=== PATIENT | female | born 1990 ===

== ENCOUNTER 2024-10-09 08:10 | Outpatient (CLI) | payer OTHER | END 2024-10-09 08:11 | disposition home or self-care (01) | LOC: PRENATAL 08:10 | PROVIDERS: ATTEND Obstetrics & Gynecology Maternal & Fetal Medicine | DX: O36.80X0 Pregnancy with inconclusive fetal viability, not applicable or unspecified (principal); Z36.82 Encounter for antenatal screening for nuchal translucency; O09.529 Supervision of elderly multigravida, unspecified trimester; Z14.8 Genetic carrier of other disease; Z3A.12 12 weeks gestation of pregnancy ==

== ENCOUNTER 2024-12-04 08:01 | Outpatient (CLI) | payer OTHER | END 2024-12-04 08:04 | disposition home or self-care (01) | LOC: PRENATAL 08:01 | PROVIDERS: ATTEND Obstetrics & Gynecology Maternal & Fetal Medicine | DX: O44.00 Complete placenta previa NOS or without hemorrhage, unspecified trimester (principal); O09.529 Supervision of elderly multigravida, unspecified trimester; Z3A.20 20 weeks gestation of pregnancy ==

== ENCOUNTER 2025-02-25 08:10 | Outpatient (CLI) | payer OTHER | END 2025-02-25 08:12 | disposition home or self-care (01) | LOC: PRENATAL 08:10 | PROVIDERS: ATTEND Obstetrics & Gynecology Maternal & Fetal Medicine | DX: O26.849 Uterine size-date discrepancy, unspecified trimester (principal); O36.8199 Decreased fetal movements, unspecified trimester, other fetus; O09.529 Supervision of elderly multigravida, unspecified trimester; Z3A.32 32 weeks gestation of pregnancy ==

== ENCOUNTER 2025-04-08 14:00 | Inpatient (IN) | payer OTHER ==
[~2025-04-08] VITALS: Ht 170.2 cm; Wt 69.9 kg
[2025-04-10] VITALS (7 sets, daily range): BP systolic 95–121; BP diastolic 52–80
[2025-04-10] MEDS ORDERED: AMPICILLIN SODIUM 2,000 MG VIAL IV ONE (02:45)
[2025-04-10] MEDS ORDERED: RINGERS SOLUTION,LACTATED 1,000 ML IV SCH (02:45)
[2025-04-10] MEDS ORDERED: ZOLOFT25 MG PO (02:53)
[2025-04-10] MEDS ORDERED: FUSION CAPSULE1 EACH PO (02:53)
[2025-04-10] MEDS ORDERED: PRENATAL TABLE1 EAC1 PO (02:53)
[2025-04-10 03:12] LABS: URINE APPEARANCE Turbid; URINE BILIRRUBIN Negative (NEGATIVE); URINE COLOR Yellow; URINE GLUCOSE Negative (NEGATIVE); URINE KETONE Negative (NEGATIVE); URINE LEUKOCYTE Small; URINE NITRATE Negative; URINE UROBILINOGEN 0.2 E.U./dl
[2025-04-10 03:17] LABS: BASO % 0.1 % (0.1-1.2); EOS # 0.03 (0.04-0.54); EOS % 0.4 % (0.7-7.0); LYMPH # 1.89 (1.18-3.74); LYMPH % 22.7 % (19.3-53.1); MEAN PLATELET VOLUME 11.00 fl (9.4-12.4); MONO # 0.62 (0.24-0.82); MONO % 7.5 % (4.7-12.5); NEUT # 5.72 (1.56-6.13); NEUT % 68.8 % (34.0-71.1); RED CELL DISTRIBUTION WIDTH 17.0 % (11.6-14.4)
[2025-04-10 03:24] LABS: URINE BLOOD Moderate
[2025-04-10 03:26] LABS: URINE BACTERIA 3367.1 uL (0.0-1933); URINE CAST 5.67 uL (0.0-1.40); URINE EPITHELIAL CELLS 153.5 uL (0.0-38.8); URINE RBC 1000.1 uL (0.0-20.8); URINE WBC 279.0 uL (0.0-23.2)
[2025-04-10 03:33] LABS: INR 0.97
[2025-04-10 03:37] LABS: ALT/SGPT 18.0 U/L (12-78); AST/SGOT 22.0 U/L (15-37); BILIRUBIN TOTAL 0.44 mg/dL (0.3-1.2); BUN CREA RATIO 17.0 (7.0-25.0); GFR 131.27; GLOBULINA 3.4 G/DL (2.4-3.5); GLUCOSE FASTING 87.0 mg/dL (65-100); OSMOLALITY SERUM 279.0 MOSM/KG (275-295)
[2025-04-10 03:40] LABS: CREATININE SERUM 0.53 mg/dL (0.55-1.02)
[2025-04-10 04:03] LABS: TYPE CELLS SQUAMOUS; URINE PROTEIN 100 (NEGATIVE)
[2025-04-10 04:04] LABS: URINE YEAST FEW /hpf
[2025-04-10] MEDS ORDERED: AMPICILLIN SODIUM 1,000 MG VIAL IV SCH (08:00)
[2025-04-10] MEDS ORDERED: OXYTOCIN 500 ML IV ONE (11:45)
[2025-04-10] MEDS ORDERED: LIDOCAINE HCL 1% 10ML VIAL IJ ONE (14:45)
[2025-04-10] MEDS ORDERED: OXYTOCIN 1,000 ML IV SCH ×2 (14:45→15:15)
[2025-04-10] MEDS ORDERED: ERYTHROMYCIN BASE OPHT 1GM EACH TUBE OP ONE (15:00)
[2025-04-10] MEDS ORDERED: CHLORHEXIDINE GLUCONATE 120 ML BOTTLE TOP ONE (15:00)
[2025-04-10] MEDS ORDERED: ACETAMINOPHEN 500 MG GEL..CAP PO SCH (18:00)
[2025-04-11] VITALS: BP 112/70
[2025-04-11 07:33] LABS: BASO % 0.2 % (0.1-1.2); EOS # 0.05 (0.04-0.54); EOS % 0.5 % (0.7-7.0); LYMPH # 1.71 (1.18-3.74); LYMPH % 17.5 % (19.3-53.1); MEAN PLATELET VOLUME 11.10 fl (9.4-12.4); MONO # 0.76 (0.24-0.82); MONO % 7.8 % (4.7-12.5); NEUT # 7.18 (1.56-6.13); NEUT % 73.6 % (34.0-71.1); RED CELL DISTRIBUTION WIDTH 17.2 % (11.6-14.4)
[2025-04-11 09:56] VITALS: BP 108/72
[2025-04-11 16:19] VITALS: BP 105/67
[2025-04-12] VITALS: BP 98/62
[2025-04-12 08:00] VITALS: BP 113/77
== END 2025-04-12 15:28 | disposition home or self-care (01) | DRG 807 ==
LOC: LDR 04-10 02:39 → OB/GYN 04-10 17:49
PROVIDERS: Specialist; ADMIT Obstetrics & Gynecology; ATTEND Obstetrics & Gynecology
PROC: 10E0XZZ Delivery of Products of Conception, External Approach (ICD-10-PCS; principal; 2025-04-10)
PROC: 0KQM0ZZ Repair Perineum Muscle, Open Approach (ICD-10-PCS; 2025-04-10)
PROC: 0UQMXZZ Repair Vulva, External Approach (ICD-10-PCS; 2025-04-10)
PROC: 4A1HXCZ Monitoring of Products of Conception, Cardiac Rate, External Approach (ICD-10-PCS; 2025-04-10)
DX: O70.1 Second degree perineal laceration during delivery (principal); O69.81X0 Labor and delivery complicated by cord around neck, without compression, not applicable or unspecified; O99.824 Streptococcus B carrier state complicating childbirth; O71.82 Other specified trauma to perineum and vulva; Z37.0 Single live birth; Z3A.38 38 weeks gestation of pregnancy; Z88.6 Allergy status to analgesic agent